=== PATIENT | male | born 1975 | race Native Hawaiian/Other Pacific Islander ===

== ENCOUNTER 2020-09-03 15:10 | Emergency (ER) | payer OTHER ==
[~2020-09-03] VITALS: Ht 182.9 cm; Wt 86.2 kg
[2020-09-03 15:10] VITALS: TEMP 98.6
[2020-09-03 15:55] LABS: PLATELET COUNT 367 K/uL (142-355)
[2020-09-03 16:22] LABS: PARTIAL THROMBOPLASTIN TIME 24.4 SECONDS (24.5-33.6)
[2020-09-03 18:19] VITALS: BP 126/69
== END 2020-09-03 18:19 ==
LOC: ED 15:10
PROVIDERS: Hospitalist
DX: S09.8XXA Other specified injuries of head, initial encounter (principal); F07.81 Postconcussional syndrome; Y04.2XXA Assault by strike against or bumped into by another person, initial encounter; W22.8XXA Striking against or struck by other objects, initial encounter; Y92.149 Unspecified place in prison as the place of occurrence of the external cause
CPT/HCPCS: 36415; 80048; 85027; 85610; 85730; 96374; 96375; 99284; J1885; J2270